=== PATIENT | female | born 1945 | race Caucasian/White ===

== ENCOUNTER → 2023-11-06 11:06 | Outpatient (REF) | payer OTHER, SELFPAY | LOC: MRI 3T 11:06 | PROVIDERS: ATTENDING PHYSICIAN Orthopaedic Surgery; FAMILY PHYSICIAN Nurse Practitioner Adult Health | DX: M25.561 Pain in right knee (principal) | CPT/HCPCS: 73721 ==

== ENCOUNTER → 2024-03-26 08:50 | Outpatient (REF) | payer OTHER, SELFPAY | LOC: HWRAD 08:50 | PROVIDERS: ATTENDING PHYSICIAN Nurse Practitioner Adult Health | DX: M54.16 Radiculopathy, lumbar region (principal) | CPT/HCPCS: 72110 ==

== ENCOUNTER → 2024-04-18 09:51 | Outpatient (REF) | payer OTHER, SELFPAY | LOC: HWWDC 09:51 | PROVIDERS: ATTENDING PHYSICIAN Nurse Practitioner Adult Health | DX: Z12.31 Encounter for screening mammogram for malignant neoplasm of breast (principal) | CPT/HCPCS: 77063; 77067 ==

== ENCOUNTER → 2024-05-17 09:05 | Outpatient (REF) | payer OTHER, SELFPAY | LOC: RAD 09:05 | PROVIDERS: ATTENDING PHYSICIAN Internal Medicine; FAMILY PHYSICIAN Nurse Practitioner Adult Health | DX: I36.1 Nonrheumatic tricuspid (valve) insufficiency (principal); I35.8 Other nonrheumatic aortic valve disorders; I11.0 Hypertensive heart disease with heart failure; E78.00 Pure hypercholesterolemia, unspecified | CPT/HCPCS: 76770 ==

== ENCOUNTER → 2024-06-12 11:05 | Outpatient (REF) | payer OTHER, SELFPAY | LOC: PAVMRI 11:05 | PROVIDERS: ATTENDING PHYSICIAN Nurse Practitioner Adult Health | DX: M54.16 Radiculopathy, lumbar region (principal) | CPT/HCPCS: 72148 ==

== ENCOUNTER → 2024-08-03 09:43 | Outpatient (REF) | payer OTHER, SELFPAY | LOC: HWRAD 09:43 | PROVIDERS: ATTENDING PHYSICIAN Internal Medicine Gastroenterology; FAMILY PHYSICIAN Nurse Practitioner Adult Health | DX: R10.31 Right lower quadrant pain (principal) | CPT/HCPCS: 76856 ==

== ENCOUNTER → 2025-04-22 10:51 | Outpatient (REF) | payer OTHER, SELFPAY | LOC: HWWDC 10:51 | PROVIDERS: ATTENDING PHYSICIAN Nurse Practitioner Adult Health | DX: Z78.0 Asymptomatic menopausal state (principal); Z12.31 Encounter for screening mammogram for malignant neoplasm of breast | CPT/HCPCS: 77063; 77067; 77080 ==

== ENCOUNTER 2025-05-08 06:21 | Day surgery (SDC) | payer OTHER, SELFPAY | END 2025-05-08 10:10 | disposition home or self-care (01) | LOC: GI 06:21 | PROVIDERS: ATTENDING PHYSICIAN Internal Medicine Gastroenterology; FAMILY PHYSICIAN Nurse Practitioner Adult Health | DX: K22.70 Barrett's esophagus without dysplasia (principal); K31.7 Polyp of stomach and duodenum; K44.9 Diaphragmatic hernia without obstruction or gangrene | CPT/HCPCS: 43239; 88305 ==

== ENCOUNTER → 2025-06-17 10:05 | Outpatient (REF) | payer OTHER, SELFPAY | LOC: HWRCS 10:05 | PROVIDERS: ATTENDING PHYSICIAN Internal Medicine; FAMILY PHYSICIAN Nurse Practitioner Adult Health | DX: I10 Essential (primary) hypertension (principal); I36.1 Nonrheumatic tricuspid (valve) insufficiency; I35.8 Other nonrheumatic aortic valve disorders; E78.2 Mixed hyperlipidemia | CPT/HCPCS: 93306 ==